=== PATIENT | male | born 1975 | race African-American/Black ===

== ENCOUNTER 2019-02-18 17:43 | Emergency (ER) | payer OTHER ==
[~2019-02-18] VITALS: Ht 177.8 cm; Wt 97.5 kg
[2019-02-18 19:12] LABS: ABSOLUTE NEUTROPHILS 3.4 thou/uL (1.4-8.2); BASOPHILS 0.6 % (0.0-2.0); EOSINOPHILS 0.9 % (0.0-3.0); HEMATOCRIT 40.8 % (42.0-52.0); HEMOGLOBIN 13.8 gm/dL (14.0-18.0); LYMPHOCYTES 19.6 % (24.0-44.0); MCH 30.1 pg (26.0-34.0); MCHC 33.9 g/dL (28.0-37.0); MCV 88.8 fL (80.0-100.0); MONOCYTES 9.2 % (1.0-8.0); PLATELET COUNT 139 thou/uL (150-400); POLYS 69.7 % (36.0-66.0); RBC 4.59 mil/uL (4.50-6.00); RDW 13.9 % (10.5-14.5); WBC 4.9 thou/uL (4.0-11.0)
[2019-02-18 19:20] LABS: ANION GAP 8 mmol/L (7-16); BUN 20 mg/dL (7-18); CALCIUM 9.1 mg/dL (8.5-10.1); CHLORIDE 107 mmol/L (98-107); CO2 25 mmol/L (21-32); CREATININE 1.1 mg/dL (0.7-1.3); GLUCOSE 132 mg/dL (74-106); SODIUM 140 mmol/L (136-145)
[2019-02-18 19:29] LABS: TROPONIN-I <0.06 ng/mL (<0.06)
[2019-02-18 20:15] VITALS: BP 117/52
--- NOTE | 2019-02-19 08:03 | EKG ---
[place] [address] [facility] [place] [address] ELECTROCARDIOGRAM REPORT Name: DOMI PARKS [id number] ������������������ Admission: 02/18/19 ������������������ Attend Phys: Discharge: 02/18/19 ������������������ Date of : 77 Report #: [id number] ����������������������������������������������������������������� [id number] THIS REPORT FOR: //name// [facility] ED Test Date: 2019-02-18 Test Time: 17:49:19 Pat Name: DOMI PARKS Department: Room: Gender: [employer]: jlambhan : 1975 Requested By: Kasi Smith Order Number: [id number] MD: Roman Romero Measurements Intervals Elbe Rate: 86 P: 60 NM: 143 QRS: 43 QRSD: 81 T: -15 QT: 347 QTc: 415 Interpretive Statements Sinus rhythm Multiple ventricular premature complexes Prominent P waves, nondiagnostic Borderline T abnormalities, inferior leads No previous ECG available for comparison Electronically Signed On 02-19-2019 8:03:35 CDT by Roman Romero [email or web address] ��������������������������������������������� <ELECTRONICALLY SIGNED> ���������������������������������������� By: Roman Romero MD ��������������������������������������������� 02/19/19 0803 D: [id number] Roman Romero MD /ADI
== END 2019-02-18 20:15 | disposition home or self-care (01) ==
LOC: ER 17:43
PROVIDERS: Emergency Medicine
DX: R55 Syncope and collapse (principal); F17.210 Nicotine dependence, cigarettes, uncomplicated